=== PATIENT | female | born 1995 | race Caucasian/White ===

== ENCOUNTER 2019-05-16 04:10 | Observation (INO) | payer OTHER, SELFPAY ==
[2019-05-16] VITALS (26 sets, daily range): BP systolic 108–130; BP diastolic 48–71; PULSE 69–108; RESP 18; TEMP 36.3–37.2; O2SAT 97–100; BMI 28.3
--- NOTE | ~2019-05-16 | US_ITS ---
EXAMINATION: US OB limited w BPP DATE: 05/16/2019 07:50 INDICATION: Vaginal bleeding. Second trimester. TECHNIQUE: Real-time pelvic ultrasound was performed. COMPARISON: Ultrasound 10/23/2018 FINDINGS: There is a single living fetus in vertex presentation. The placenta is fundal. heart rate is 1 65 beats per minute (bpm). The amniotic fluid index is 3.3 cm, which is low (5th percentile is 9.7 cm ). Biophysical profile performed by the technologist: breathing (30 sec sustained breathing in 30 minutes): 2 out of 2 movement (3 gross body movements in 30 minutes): 2 out of 2 tone (one episode of tbekgpg-pwhqbggcs-ygiijkp limb movement): 2 out of 2 Amniotic fluid pocket (2 cm): 0 out of 2 Total score: 6 out of 8 IMPRESSION: 1. Single living fetus in vertex presentation. 2. Biophysical profile 6 out of 8. 3. Oligohydramnios. Reviewed, dictated and finalized at location A.
--- NOTE | 2019-05-16 04:10 | OBADM ---
This patient, Miguel Quinn, admitted to the OB room OB Post 117 for observation. Patient/family oriented to hospital policies and general routines including ID bracelet, bed and alarms, visiting hours, pain management, procedures, bathroom and other care routines, personal items, smoking policy, room service/diet, and visiting hours. Patient/Family are encouraged to report perceived risks to care and to ask questions if they do not understand what they are told or what they should do.
--- NOTE | 2019-05-16 04:35 | PC.NURSE ---
Updated Dr. Kessler on patient arrival to OB unit with complaint of vaginal bleeding when using the restroom. Patient states she is not actively bleeding and states she had a drop of blood last time she wiped. Patient reports hx of low lying placenta in current and hx of section. VSS. No contractions noted. Active movement audible, visible and felt via palpation. FHT reactive. Orders for SVE and ultrasound in AM given.
--- NOTE | 2019-05-16 04:44 | PC.NURSE ---
Vaginal check performed, vaginal bleeding noted on glove. Cervix was not checked.
--- NOTE | 2019-05-16 04:46 | PC.NURSE ---
Notifed Dr. Kesslre of vaginal bleeding during vaginal check. No new orders at present time, continue to monitor.
--- NOTE | 2019-05-16 10:03 | WPDOBADMIT ---
Obstetrics - Admit Note Admission Note: record reviewed. Additions to the history and/or subsequent changes in the physical findings follow. 24 y/o at 25 weeks here after a gush of bloody fluid at 0330 today. [facility] here is blood-tinged, but positive. No contractions. No fever. No pain. Good movement. Placenta appeared low-lying at last ultrasound exam at 22 weeks. AVSS NST 160 good variability TOCO: no contractions ABD soft, nontender, gravid. EXT nontender Cervix: not digitally examined. US: IUP in vertex presentation with fundal placenta. RASHAAD 3.3cm. A: IUP at 25 weeks with SROM. P: Spoke at length with patient and reviewed risks associated with . I offered transfer to [facility]. She understands and agrees. I spoke with Dr. Gimenez at [facility], and she has accepted the transfer.
[2019-05-16] MEDS: AMPICILLIN 2 GM/NS 100 ML 2 GM/100 ML BAG IVPB (10:47)
[2019-05-16] MEDS: LACTATED RINGERS 1,000 ML 75 ML IV CONT (10:47)
[2019-05-16] MEDS: BETAMETHASONE SOD PHOS/ACETATE 30 MG/5 ML VIAL 12 MG IM (10:58)
[2019-05-16] MEDS: MAGNESIUM SULF 6 GM/WATER150ML 6 GM/150 ML BAG IVPB (11:04)
[2019-05-16] MEDS: AZITHROMYCIN 250 MG TABLET 1000 MG PO (11:05)
[2019-05-16] MEDS: MAGNESIUM SULF 20GM/WATER500ML 500 ML 50 MG IV CONT (11:39)
== END 2019-05-16 12:01 | disposition short-term general hospital (02) ==
LOC: ANHOBPP 04:51 → ANHLDR 20:02 → ANHOBPP 05-17 12:36
PROVIDERS: Admitting Provider Obstetrics & Gynecology; Visit Provider Obstetrics & Gynecology
DX: O42.912 Preterm premature rupture of membranes, unspecified as to length of time between rupture and onset of labor, second trimester (principal); Z3A.25 25 weeks gestation of pregnancy
CPT/HCPCS: 76815; 76819; 96365; 96372; 96375; A9270; G0378; G0379; J0290; J0702; J3475; J7120

== ENCOUNTER 2020-05-01 09:32 | Observation (INO) | payer OTHER, SELFPAY ==
[2020-05-01] VITALS (31 sets, daily range): BP systolic 122–123; BP diastolic 56–67; PULSE 79–121; O2SAT 100; BMI 33.3
--- NOTE | ~2020-05-01 | US_ITS ---
EXAMINATION: US OB follow up, US OB f/u add gest EXAM DATE: 05/01/2020 10:38 INDICATION: Twins - size and position at bedside please leaking fluid, contractions, twins 3rd trim finesse. TECHNIQUE: Pelvic twin obstetrical transabdominal sonogram was performed by a technologist. There a re multiple grayscale and Doppler images available for interpretation. Comparison is made to prior ex amination from 04/06/2020. FINDINGS: There is twin intrauterine gestation, again with Baby A in lower vertex position on materna l left side with posterior placenta and heart rate 128 bpm. Baby B vertex presentation on maternal l eft side with anteriorly located placenta and heart rate 137 bpm. No evidence of retroplacental hemor rhage, but the posteriorly located placenta was poorly visualized. Amniotic fluid index of 19.0 cm, n ormal. BABY A BIOMETRIC DATA: Biparietal diameter (BPD): 9.1 cm ----------------> 37 weeks 1 day. Head circumference (HC): 32.8 cm ----------------> 37 weeks 1 day. Abdominal circumference (AC): 31.9 cm ----------> 35 weeks 5 days. Femur length (FL): 6.9 cm --------------------------> 35 weeks 2 days. These measurements are concordant. HC/AC ratio is 1.03 (The 5th -- 95th percentile range is 0.92-1.07. Estimated weight is 2809 g +/- 421 g. This is the 64th percentile when the currently reported clinical gestation age 35 weeks 3 days, clinical estimated date of delivery ([facility]VIN-OPE) 06/02/2020 is us ed. estimated gestational age based on measurements from this exam is 36 weeks 2 days, with an estimated date of delivery ([facility]VIN-AUA) 05/27. On prior ultrasound last month this baby was 65th percenti le. BABY B BIOMETRIC DATA: Biparietal diameter (BPD): 8.4 cm ----------------> 33 weeks 6 days. Head circumference (HC): 30.4 cm ----------------> 33 weeks 6 days. Abdominal circumference (AC): 29.6 cm ----------> 33 weeks 4 days. Femur length (FL): 7.0 cm --------------------------> 35 weeks 4 days. These measurements are concordant. HC/AC ratio is 1.03 (The 5th -- 95th percentile range is 0.94-1.11. Estimated weight is 2388 g +/- 358 g. This is the 19th percentile when the currently reported clinical gestation age 35 weeks 3 days, clinical estimated date of delivery ([facility]VIN-OPE) 06/02 is used. F etal estimated gestational age based on measurements from this exam is 34 weeks 2 days, with an estim ated date of delivery (NEVIN-AUA) 06/10. On prior ultrasound last month this baby was 28th percentile. IMPRESSION: 1. Live twin gestations both in vertex presentation unchanged, normal heart rates. 2. Baby A 64th percentile and baby B 19th percentile. Biometric data above. 3. Normal amniotic fluid index 19 cm. Reviewed, dictated and finalized at location A. IMPRESSION: 1. Live twin gestations both in vertex presentation unchanged, normal heart ra cary. 2. Baby A 64th percentile and baby B 19th percentile. Biometric data above. 3. Normal amniotic fluid index 19 cm.
[2020-05-01] MEDS: TERBUTALINE SULFATE 1 MG/ML VIAL 0.25 MG SUB-Q ×2 (09:24→11:02)
--- NOTE | 2020-05-01 09:56 | PM.OBTRLD ---
OB - Triage/Final Diagnosis Visit Information Reason for evaluation: threatened labor and other (twins) Comments/Additional reasons for admission: I have assessed the risk for this patient, Miguel Quinn, and determined that she would benefit from observation care. Evaluation Vital signs: Vital Signs - 24 hr 05/01/20 09:29 05/01/20 09:34 05/01/20 09:39 Pulse Oximetry 100 100 100 05/01/20 09:44 05/01/20 09:49 05/01/20 09:54 Pulse Oximetry 100 100 100
[2020-05-01] MEDS: LACTATED RINGERS 1,000 ML 125 ML IV CONT (10:09)
[2020-05-01] MEDS: BETAMETHASONE SOD PHOS/ACETATE 30 MG/5 ML VIAL 12 MG IM (10:10)
--- NOTE | 2020-05-01 10:17 | OBADM ---
This patient, Miguel Quinn, admitted to the OB room Labor/Delivery/Recovery 105 for observation. Patient/family oriented to hospital policies and general routines including ID bracelet, bed and alarms, visiting hours, pain management, procedures, bathroom and other care routines, personal items, smoking policy, room service/diet, call light, and visiting hours. Patient/Family are encouraged to report perceived risks to care and to ask questions if they do not understand what they are told or what they should do.
== END 2020-05-01 12:30 | disposition home or self-care (01) ==
PROVIDERS: Admitting Provider Obstetrics & Gynecology; Visit Provider Obstetrics & Gynecology
DX: O47.03 False labor before 37 completed weeks of gestation, third trimester (principal); O30.003 Twin pregnancy, unspecified number of placenta and unspecified number of amniotic sacs, third trimester; Z3A.35 35 weeks gestation of pregnancy
CPT/HCPCS: 76816; 84112; 96372; G0378; G0379; J0702; J3105; J7120

== ENCOUNTER 2020-05-02 10:06 | Observation (INO) | payer OTHER, SELFPAY ==
[2020-05-02] VITALS (8 sets, daily range): BP systolic 114–128; BP diastolic 55–73; PULSE 73–93; BMI 33.3
[2020-05-02] MEDS: BETAMETHASONE SOD PHOS/ACETATE 30 MG/5 ML VIAL 12 MG IM (10:39)
[2020-05-02 13:17] LABS: Add Urine Microscopic? NO; Appearance Urine Clear (Clear); Bilirubin Urine Negative (Negative); Blood Urine Negative (Negative); Color Urine Yellow (Yellow); Glucose Urine UA Negative (Negative); Ketones Urine Negative (Negative); Leukocyte Esterase Ur Negative LEU/UL (Negative); Nitrate Urine Negative (Negative); Protein Urine Negative (Negative); Specific Grav Ur 1.013 (1.001-1.035); Urobilinogen Urine Negative mg/dL (<2.0)
[2020-05-02] MEDS: ACETAMINOPHEN 500 MG TABLET 1000 MG PO (13:54)
[2020-05-02] MEDS: NIFEdipine 10 MG CAPSULE 20 MG PO (13:55)
--- NOTE | 2020-05-03 07:26 | PM.OBTRLD ---
OB - Triage/Final Diagnosis Visit Information Date of evaluation: 05/02/20 Reason for evaluation: threatened labor Comments/Additional reasons for admission: I have assessed the risk for this patient, Miguel Quinn, and determined that she would benefit from observation care. Evaluation Laboratory results: Laboratory Tests 05/02/20 12:44 Urine Color Yellow Urine Appearance Clear Urine pH 6.0 Ur Specific [place] 1.013 Urine Protein Negative Urine Glucose (UA) Negative Urine Ketones Negative Ur Blood (Man) Negative Urine Nitrate Negative Urine Bilirubin Negative Urine Urobilinogen Negative Leukocyte Esterase Rfl Negative Vital signs: Vital Signs - 24 hr 05/02/20 10:29 05/02/20 10:30 05/02/20 11:01 Pulse Rate 93 86 80 Blood Pressure 128/73 119/66 120/68 05/02/20 11:30 05/02/20 12:00 05/02/20 12:30 Pulse Rate 76 73 79 Blood Pressure 114/61 115/61 119/59 L 05/02/20 13:00 05/02/20 13:30 Pulse Rate 81 78 Blood Pressure 118/55 L 121/60
== END 2020-05-02 14:00 | disposition home or self-care (01) ==
PROVIDERS: Admitting Provider Student in an Organized Health Care Education/Training Program; Visit Provider Student in an Organized Health Care Education/Training Program
DX: O47.03 False labor before 37 completed weeks of gestation, third trimester (principal); Z3A.35 35 weeks gestation of pregnancy
CPT/HCPCS: 81003; 96372; A9270; G0378; G0379; J0702

== ENCOUNTER 2020-05-04 09:53 | Observation (INO) | payer OTHER, SELFPAY ==
[2020-05-04] VITALS (7 sets, daily range): BP systolic 110–131; BP diastolic 59–74; PULSE 75–95; TEMP 37.4; BMI 33.3
--- NOTE | 2020-05-04 11:47 | PM.OBTRLD ---
OB - Triage/Final Diagnosis Visit Information Date of evaluation: 05/04/20 Reason for evaluation: threatened labor and other (twins) Comments/Additional reasons for admission: I have assessed the risk for this patient, Miguel Quinn, and determined that she would benefit from observation care. Evaluation Vital signs: Vital Signs - 24 hr 05/04/20 10:18 05/04/20 10:30 05/04/20 10:41 Temperature 99.4 F Pulse Rate 84 81 Blood Pressure 125/70 125/64 05/04/20 10:45 05/04/20 11:00 05/04/20 11:15 Temperature Pulse Rate 78 75 95 Blood Pressure 119/59 L 110/71 125/74 05/04/20 11:30 Temperature Pulse Rate 87 Blood Pressure 131/61
== END 2020-05-04 12:07 | disposition home or self-care (01) ==
PROVIDERS: Admitting Provider Obstetrics & Gynecology; Visit Provider Obstetrics & Gynecology
DX: O47.03 False labor before 37 completed weeks of gestation, third trimester (principal); O30.003 Twin pregnancy, unspecified number of placenta and unspecified number of amniotic sacs, third trimester; Z3A.35 35 weeks gestation of pregnancy
CPT/HCPCS: G0378; G0379

== ENCOUNTER 2020-05-09 19:42 | Observation (INO) | payer OTHER, SELFPAY ==
[2020-05-09 21:45] VITALS: TEMP 36.6
[2020-05-09] MEDS: AMPICILLIN 2 GM/NS 100 ML 2 GM/100 ML BAG IVPB (22:12)
[2020-05-09 22:18] VITALS: BMI 35.9
[2020-05-09] MEDS: LACTATED RINGERS 1,000 ML 125 ML IV CONT (23:44)
[2020-05-09 23:46] VITALS: BP 137/73; PULSE 74
--- NOTE | 2020-05-10 04:12 | WPDOBADMIT ---
Obstetrics - Admit Note Admission Note: record reviewed. Additions to the history and/or subsequent changes in the physical findings follow. 25 y/o at 36 5/7 weeks with di/di twins, prior cesaraean, prior at 28 weeks, here with contractions. Good movement. No bleeding or leakage of fluid. Have watched here for several hours. AVSS NST reactive x 2 TOCO: contractions every 7-8 min ABD soft, nontender, gravid, vertex EXT nontender Cervix 3-4/50/-2, unchanged. Bedside ultrasound vtx / vtx. A: IUP at 36 5/7 weeks with twins, not in active labor. P: Home with labor precautions. F/u next week..
== END 2020-05-10 04:25 | disposition home or self-care (01) ==
PROVIDERS: Admitting Provider Obstetrics & Gynecology; Visit Provider Obstetrics & Gynecology
DX: O60.03 Preterm labor without delivery, third trimester (principal); O30.043 Twin pregnancy, dichorionic/diamniotic, third trimester; Z3A.36 36 weeks gestation of pregnancy
CPT/HCPCS: 96374; G0378; G0379; J0290; J7120

== ENCOUNTER 2020-05-14 12:27 | Outpatient (RCR) | payer OTHER, SELFPAY ==
[2020-04-06 14:20] VITALS: BP 119/63; PULSE 81
[2020-04-21 10:07] VITALS: BP 126/72; PULSE 76
[2020-04-28 14:04] VITALS: BP 132/63; PULSE 78
[2020-05-07 12:00] VITALS: BP 124/61; PULSE 75
--- NOTE | ~2020-05-14 | US_ITS ---
EXAMINATION: US OB f/u add gest EXAM DATE: 04/06/2020 15:50 INDICATION: 3rd trimester. TECHNIQUE: Pelvic twin obstetrical transabdominal sonogram was performed by a technologist. There a re multiple grayscale and Doppler images available for interpretation. FINDINGS: There are live twin gestations with baby A in lower vertex position on maternal left side a nd baby B in higher vertex position on maternal right side. Sac separation noted. BABY A: Has heart rate 139 bpm and posteriorly located placenta. Biparietal diameter (BPD): 8.5cm --------------> 34 weeks 0 days. Head circumference (HC): 30.5 cm ---------------> 33 weeks 6 days. Abdominal circumference (AC): 28.5 cm ---------> 32 weeks 4 days. Femur length (FL): 6.2 cm ------------------------> 32 weeks 0 days. These measurements are concordant. HC/AC ratio is 1.07 (The 5th -- 95th percentile range is 0.96-1.11. Estimated weight is 2019 g +/- 303 g. This is the 65th percentile when the currently reported clinical gestation age 31 weeks 6 days, clinical estimated date of delivery ([facility]) 06/02/2020 is us ed. estimated gestational age based on measurements from this exam is 33 weeks 1 day, with an e stimated date of delivery (NEVIN-AUA) 05/24. BABY B: Has a heart rate 126 beats per minutes and an anteriorly located placenta. Biparietal diameter (BPD): 7.6cm --------------> 29 weeks 6 days. Head circumference (HC): 28.0 cm ---------------> 30 weeks 6 days. Abdominal circumference (AC): 27.9 cm ---------> 32 weeks 0 days. Femur length (FL): 6.0 cm ------------------------> 31 weeks 2 days. These measurements are concordant. HC/AC ratio is 1.01 (The 5th -- 95th percentile range is 0.96-1.17. Estimated weight is 1779 g +/- 267 g. This is the 28th percentile when the currently reported clinical gestation age 31 weeks 6 days, clinical estimated date of delivery ([facility]-OPE) 06/02/2020 is us ed. estimated gestational age based on measurements from this exam is 31 weeks 0 days, with an estimated date of delivery ([facility]VIN-AUA) 06/08. IMPRESSION: 1. Twin gestations both vertex presentation. 2. Using gestation age of 31 weeks 6 days, weight of baby A is 2019 g, 65th percentile and baby B is 1779 g, 28th percentile. Reviewed, dictated and finalized at location B. [employer]
--- NOTE | ~2020-05-14 | US_ITS ---
Corrected Report See Bolded Text Order # Associated 06/10/2020 [facility] EXAMINATION: US OB f/u add gest EXAM DATE: 04/06/2020 15:57 INDICATION: Twins- Estimated weight and presentation 3rd trimester. TECHNIQUE: Pelvic obstetrical transabdominal sonogram was performed by a technologist. There are multiple grayscale and Doppler images available for interpretation. FINDINGS: There are live twin gestations with baby A in lower vertex position on maternal left side and baby B in higher vertex position on maternal right side. Sac separation noted. BABY A: Has heart rate 139 bpm and posteriorly located placenta. Biparietal diameter (BPD): 8.5cm --------------> 34 weeks 0 days. Head circumference (HC): 30.5 cm ---------------> 33 weeks 6 days. Abdominal circumference (AC): 28.5 cm ---------> 32 weeks 4 days. Femur length (FL): 6.2 cm ------------------------> 32 weeks 0 days. These measurements are concordant. HC/AC ratio is 1.07 (The 5th -- 95th percentile range is 0.96-1.11. Estimated weight is 2019 g +/- 303 g. This is the 65th percentile when the currently reported clinical gestation age 31 weeks 6 days, clinical estimated date of delivery ([facility]-OPE) 06/02/2020 is used. estimated gestational age based on measurements from this exam is 33 weeks 1 day, with an estimated date of delivery ([facility]VIN-AUA) 05/24. BABY B: Has a heart rate 126 beats per minutes and an anteriorly located placenta. Biparietal diameter (BPD): 7.6cm --------------> 29 weeks 6 days. Head circumference (HC): 28.0 cm ---------------> 30 weeks 6 days. Abdominal circumference (AC): 27.9 cm ---------> 32 weeks 0 days. Femur length (FL): 6.0 cm ------------------------> 31 weeks 2 days. These measurements are concordant. HC/AC ratio is 1.01 (The 5th -- 95th percentile range is 0.96-1.17. Estimated weight is 1779 g +/- 267 g. This is the 28th percentile when the currently reported clinical gestation age 31 weeks 6 days, clinical estimated date of delivery ([facility]-OPE) 06/02/2020 is used. estimated gestational age based on measurements from this exam is 31 weeks 0 days, with an estimated date of delivery ([facility]VIN-AUA) 06/08. IMPRESSION: 1. Twin gestations both vertex presentation. 2. Using gestation age of 31 weeks 6 days, weight of baby A is 2019 g, 65th percentile and baby B is 1779 g, 28th percentile. Reviewed, dictated and finalized at location B. [employer] IMPRESSION: 1. Twin gestations both vertex presentation. 2. Using gestation age of 31 weeks 6 days, weight of baby A is 2019 g, 65th pe rcentile and baby B is 1779 g, 28th percentile.
[2020-05-14 12:52] VITALS: BP 124/69; PULSE 76
== END 2020-05-29 08:02 | disposition home or self-care (01) ==
LOC: ANHOBOP 12:27
PROVIDERS: Visit Provider Obstetrics & Gynecology
DX: O30.003 Twin pregnancy, unspecified number of placenta and unspecified number of amniotic sacs, third trimester (principal); Z3A.31 31 weeks gestation of pregnancy; Z3A.34 34 weeks gestation of pregnancy; Z3A.35 35 weeks gestation of pregnancy; Z3A.36 36 weeks gestation of pregnancy; Z3A.37 37 weeks gestation of pregnancy
CPT/HCPCS: 59025; 76816

== ENCOUNTER 2020-05-16 18:50 | Inpatient (IN) | payer OTHER, SELFPAY ==
[2020-05-16 19:15] VITALS: BMI 36.7
--- NOTE | 2020-05-16 21:38 | PC.NURSE ---
Dr. Ketty Rey contacted. Advised that pt is having conrtractions with minimal to no cervical change after 2 hours. Pt rates pain as 8. Pt is not breathing with contractions and palpate mild. Will give IV hydration
[2020-05-16] MEDS: LACTATED RINGERS 1,000 ML 999 ML IV CONT (22:28)
[2020-05-16] MEDS: fentaNYL CITRATE INJ (*CRX) 100 MCG/2 ML VIAL 50 MCG IV PUSH ×2 (22:29→23:37)
[2020-05-16 22:31] VITALS: BP 131/83; PULSE 71
--- NOTE | 2020-05-16 23:00 | PC.NURSE ---
Dr. Ketty Keating phoned in for status/ Will continue to observe pt overnight for cervical change. Pt advised of same. Pt continues having contractions every 1-2 min. States improvement of pain since Fentanyl. Pt resting quietly.
--- NOTE | 2020-05-16 23:17 | OBADM ---
This patient, Miugel Quinn, admitted to the OB room Labor/Delivery/Recovery 101 for observation at 1850. Patient/family oriented to hospital policies and general routines including ID bracelet, bed and alarms, visiting hours, pain management, procedures, bathroom and other care routines, personal items, smoking policy, room service/diet, and visiting hours. Patient/Family are encouraged to report perceived risks to care and to ask questions if they do not understand what they are told or what they should do.
[2020-05-16] MEDS: LACTATED RINGERS 1,000 ML 125 ML IV CONT (23:37)
[2020-05-16 23:47] VITALS: BP 122/82; PULSE 69
[2020-05-17] VITALS (86 sets, daily range): BP systolic 48–171; BP diastolic 17–95; PULSE 63–112; RESP 14–18; TEMP 36–36.9; O2SAT 94–100; BMI 36.7
[2020-05-17] MEDS: fentaNYL CITRATE INJ (*CRX) 100 MCG/2 ML VIAL 50 MCG IV PUSH ×2 (02:04→03:45)
--- NOTE | 2020-05-17 03:13 | LDADM ---
This patient, Miguel Quinn, was admitted to Labor/Delivery/Recovery 101 on 05/17/20 at 03:13. Plans for labor, pain management and were discussed with patient. Patient/family oriented to hospital policies and general routines including ID bracelet, bed and alarms, visiting hours, pain management, procedures, bathroom and other care routines, personal items, smoking policy, room service/diet and guest tray routines, security routines, and visiting hours. Patient/Family are encouraged to report perceived risks to care and to ask questions if they do not understand what they are told or what they should do. See OBIX for further documentation.
[2020-05-17 03:36] LABS: Basophils Absolute Auto 0.1 K/mm3 (0.0-0.1); Basophils Percent Auto 0.3 % (0.2-1.2); Eosinophils Absolute Auto 0.1 K/mm3 (0-0.3); Eosinophils Percent Auto 0.7 % (0-4.4); Hematocrit 35.6 % (37.0-47.0); Hemoglobin 11.4 g/dL (12.0-15.0); Immature Granulocyte Absolute 0.15 K/mm3 (0.00-0.031); Immature Granulocyte Percent A 0.9 % (0-0.5); Lymphocytes Absolute Auto 1.83 K/mm3 (0.9-3.2); Lymphocytes Percent Auto 11.1 % (18.3-44.2); Mean Corpuscular Hemoglobin 26.4 pg (26-34); Mean Corpuscular Volume 82.4 fl (80-100); Mean Platelet Volume 11.2 fl (7.4-10.4); Neutrophils Absolute Auto 13.3 K/mm3 (1.3-6.7); Platelet Count Result 214 k/mm3 (150-375); Red Blood Count 4.32 M/mm3 (4.2-5.4); Red Cell Distribution Width 16.1 % (11.5-14.5); White Blood Count 16.5 K/mm3 (4.5-10.0)
[2020-05-17] MEDS: AMPICILLIN 2 GM/NS 100 ML 2 GM/100 ML BAG IVPB (03:45)
--- NOTE | 2020-05-17 03:54 | P.PNAN_ITS ---
Anes - Eval Pre Procedure Procedure: Labor epidural Date/Time: 05/17/20 03:54 Surgeon: Ketty Keating Preop Diagnosis: Abd pain with contractions Pre Op Diagnosis: Contractions Patient Data Age: 25 Gender: F Height: 5 ft 3 in Weight: 94 kg Last Vital Signs Pulse 66 05/17/20 02:00 BP 127/68 05/17/20 02:00 Allergies Allergy/AdvReac Type Severity Reaction Status Date / Time No Known Allergies Allergy Verified 05/01/20 10:14 Home Medications Medication Instructions Recorded Confirmed Type PNV cmb#95-ferrous fumarate-FA 1 tablet PO DAILY 05/02/20 05/16/20 History [] ferrous sulfate 325 mg PO TID 05/02/20 05/16/20 History progesterone micronized 200 mg PO HS 05/02/20 05/16/20 History Laboratory Tests 05/17/20 05/17/20 03:25 03:25 WBC 16.5 K/mm3 H K/mm3 (4.5-10.0) RBC 4.32 M/mm3 M/mm3 (4.2-5.4) Hgb 11.4 g/dL L g/dL (12.0-15.0) Hct 35.6 % L % (37.0-47.0) MCV 82.4 fl fl (80-100) MCH 26.4 pg pg (26-34) MCHC 32.0 g/dl g/dl (32-36) RDW 16.1 % H % (11.5-14.5) Plt Count 214 k/mm3 k/mm3 (150-375) MPV 11.2 fl H fl (7.4-10.4) Immature Gran % (Auto) 0.9 % H % (0-0.5) Neut % (Auto) 81.0 % H % (45.5-73.1) Lymph % (Auto) 11.1 % L % (18.3-44.2) [place] % (Auto) 6.0 % % (2.6-8.5) Eos % (Auto) 0.7 % % (0-4.4) Baso % (Auto) 0.3 % % (0.2-1.2) Lymph # (Auto) 1.83 K/mm3 K/mm3 (0.9-3.2) [place] # (Auto) 1.0 K/mm3 H K/mm3 (0.1-0.6) Eos # (Auto) 0.1 K/mm3 K/mm3 (0-0.3) Baso # (Auto) 0.1 K/mm3 K/mm3 (0.0-0.1) Abs Immat Gran (auto) 0.15 K/mm3 H K/mm3 (0.00-0.031) Absolute Neuts (auto) 13.3 K/mm3 H K/mm3 (1.3-6.7) Absolute Nucleated RBC 0.0 K/mm3 K/mm3 (0.0-0.012) Nucleated RBC % 0.0 % % (0.0-0.2) RPR Pending Patient hx anesthesia problems: none Family hx anesthesia problems: none PMFSH Past Medical History Medical History Obesity and not yet delivered Surgical History Surgical History Previous section Family History Family History Other Adopted Social History Social History Substance use: never Gender identity (if verbalized by the patient): Female Spiritual care concerns: No Exam Day of Procedure 05/17/20 03:54 Patient weight: obese Airway: Mallampati scale class II Neurological: alert and oriented
[2020-05-17] MEDS: METHYLERGONOVINE MALEATE 0.2 MG/ML VIAL IM (06:06)
--- NOTE | 2020-05-17 06:17 | PM.OBPRVD ---
OB - Delivery Note Procedure Delivery date: 05/17/20 Procedure: twins Delivery monitor: external FHT Route of delivery: Episiotomy description: None Laceration Description: None Specimen: No Quantitative Blood Loss (ml): 450 Anesthesia type: Epidural Disposition: floor
--- NOTE | 2020-05-17 06:20 | PM.OBPRVD ---
OB - Delivery Note Procedure Delivery date: 05/17/20 Intrapartal events: None Delivery monitor: external FHT Route of delivery: Laceration Description: None Specimen: No Quantitative Blood Loss (ml): 450 Anesthesia type: Epidural Disposition: floor [place] Baby Date of : 05/17/20 Weeks of gestation at delivery: 37 Infant gender: Female presentation: vertex position: Right Occiput Anterior Placenta delivery description: Spontaneous cord vessel description: 3 Vessels
--- NOTE | 2020-05-17 06:22 | PM.OBPRVD ---
OB - Delivery Note Procedure Delivery date: 05/17/20 Intrapartal events: None Induction method: none Delivery monitor: external FHT Route of delivery: Quantitative Blood Loss (ml): 450 Anesthesia type: Epidural Disposition: floor [place] Baby Date of : 05/17/20 Weeks of gestation at delivery: 37 gender: Female Weight (pounds): 5 Weight (ounces): 5 presentation: vertex position: Right Occiput Anterior Placenta delivery description: Spontaneous cord vessel description: 3 Vessels score one minute: 8 score five minutes: 8 Twins 2: Date of : 05/17/20 Weeks of gestation at delivery: 37 gender: Female Weight (pounds): 6 Weight (ounces): 6 presentation: vertex position: Right Occiput Anterior Placental delivery description: Spontaneous cord vessel description: 3 Vessels score one minute: 9 score five minutes: 9
--- NOTE | 2020-05-17 06:30 | PM.IMHP ---
H&P: HPI History of Present Illness Date/Time: 05/17/20 06:30 The patient is admitted at 37 weeks with twins in active labor. She has had a previous section previous vaginal delivery. Risks and benefits of were reviewed throughout the . She is positive for group B strep and will be treated as such Chief Complaint: labor twins Review of Systems Review of Systems: All systems reviewed & are unremarkable except as noted in HPI and below PMFSH Past Medical History Medical History Obesity and not yet delivered Surgical History Surgical History Previous section Family History Family History Other Adopted Social History Social History Smoking status: Never smoker Substance use: never Gender identity (if verbalized by the patient): Female Spiritual care concerns: No Meds Home Medications and Allergies Home Medications Medication Instructions Recorded Confirmed Type PNV cmb#95-ferrous fumarate-FA 1 tablet PO DAILY 05/02/20 05/16/20 History [] ferrous sulfate 325 mg PO TID 05/02/20 05/16/20 History progesterone micronized 200 mg PO HS 05/02/20 05/16/20 History Allergies Allergy/AdvReac Type Severity Reaction Status Date / Time No Known Allergies Allergy Verified 05/01/20 10:14 Vital Signs Vital Signs - 24 hr 05/16/20 22:31 05/16/20 23:47 05/17/20 00:00 Pulse Rate 71 69 66 Blood Pressure 131/83 122/82 129/75 Pulse Oximetry 05/17/20 01:00 05/17/20 02:00 05/17/20 03:56 Pulse Rate 75 66 Blood Pressure 127/81 127/68 Pulse Oximetry 99 05/17/20 03:57 05/17/20 04:02 05/17/20 04:07 Pulse Rate 84 Blood Pressure 150/89 H Pulse Oximetry 100 99 100 05/17/20 04:08 05/17/20 04:10 05/17/20 04:12 Pulse Rate 74 79 Blood Pressure 146/93 H 149/82 H Pulse Oximetry 99 05/17/20 04:13 05/17/20 04:14 05/17/20 04:17 Pulse Rate 112 H 75 Blood Pressure 48/17 L 171/75 H Pulse Oximetry 100 05/17/20 04:18 05/17/20 04:21 05/17/20 04:23 Pulse Rate 85 74 Blood Pressure 146/86 H 153/84 H Pulse Oximetry 98 100 05/17/20 04:24 05/17/20 04:27 05/17/20 04:28 Pulse Rate 84 72 Blood Pressure 142/86 H 142/83 H Pulse Oximetry 98 05/17/20 04:30 05/17/20 04:33 05/17/20 04:36 Pulse Rate 68 78 69 Blood Pressure 150/76 H 150/81 H 150/75 H Pulse Oximetry 97 05/17/20 04:38 05/17/20 04:39 05/17/20 04:42 Pulse Rate 68 84 Blood Pressure 140/74 150/87 H Pulse Oximetry 100 05/17/20 04:43 05/17/20 04:45 05/17/20 04:48 Pulse Rate 85 69 Blood Pressure 148/60 H 148/78 H Pulse Oximetry 96 99 05/17/20 04:51 05/17/20 04:53 05/17/20 04:54 Pulse Rate 71 79 Blood Pressure 142/67 H 137/72 Pulse Oximetry 100 05/17/20 04:57 05/17/20 04:58 05/17/20 05:00 Pulse Rate 69 69 Blood Pressure 134/78 143/62 H Pulse Oximetry 98 05/17/20 05:03 05/17/20 05:06 05/17/20 05:08 Pulse Rate 78 72 Blood Pressure 133/77 141/62 H Pulse Oximetry 100 97 05/17/20 05:09 05/17/20 05:55 05/17/20 05:57 Pulse Rate 70 Blood Pressure 147/72 H Pulse Oximetry 100 100 05/17/20 05:59 05/17/20 06:01 05/17/20 06:03 Pulse Rate 103 H 87 85 Blood Pressure 123/76 115/59 L 117/71 Pulse Oximetry 05/17/20 06:12 Pulse Rate 80 Blood Pressure 92/68 L Pulse Oximetry Exam Const: General: no acute distress Eyes: General: appearance normal, both eyes and all related structures Neck: Neck: supple and no JVD Thyroid: thyroid normal Resp: Effort & Inspection: normal respiratory effort Auscultation: clear to auscultation bilaterally Cardio: Rate: regular rate Rhythm: regular rhythm GI: Inspection: non-distended GI Palp: Yes Soft to palpation, No Tenderness
[2020-05-17] MEDS: OXYTOCIN 30 UNITS/NS 500 ML 30 UNITS/500 ML BAG 125 UNITS IV CONT (06:37)
--- NOTE | 2020-05-17 07:11 | PC.NURSE ---
SEE OBIX DOCUMENTATION
[2020-05-17] MEDS: IBUPROFEN 600 MG TABLET PO ×3 (09:01→23:18)
[2020-05-17] MEDS: ACETAMINOPHEN 325 MG TABLET 650 MG PO ×2 (09:21→20:38)
--- NOTE | 2020-05-17 09:30 | PC.NURSE ---
Patient transferred to post room #290 per wheelchair from labor and delivery. Support person present. Oriented to unit, room, information board, rooming in, admission packet and security measures. Patient verbalizes understanding.
[2020-05-17] MEDS: DOCUSATE SODIUM 100 MG CAPSULE PO (23:26)
[2020-05-18 04:25] VITALS: BP 131/75; PULSE 78; RESP 18; TEMP 36.7
[2020-05-18 04:42] LABS: Hematocrit 26.7 % (37.0-47.0); Hemoglobin 8.6 g/dL (12.0-15.0)
--- NOTE | 2020-05-18 07:00 | PC.NURSE ---
PT introductions made and plan of care discussed per post , pain management, breast feeding, pumping, bottle feeding, daily care activities. PT verbalized understanding understanding of such care.
--- NOTE | 2020-05-18 07:09 | P.DS_ITS ---
DS: Admitting Diagnosis Admitting Diagnosis Admitting Diagnosis: twin preg term DS: Summary Hospital Course Hospital Course: The patient was admitted in active labor with a twin . She underwent spontaneous vaginal delivery of both babies without complication. Hospital course was unremarkable. She remained afebrile. She was up, voiding without difficulty, ambulating, breast-feeding, and generally w ithout complaints Time Spent with Patient Time attestation: Total time spent providing and/or coordinating discharge services: Exam Const: General: no acute distress Eyes: General: appearance normal, both eyes and all related structures Neck: Neck: supple and no JVD Thyroid: thyroid normal Resp: Effort & Inspection: normal respiratory effort Auscultation: clear to auscultation bilaterally Cardio: Rate: regular rate Rhythm: regular rhythm GI: Inspection: non-distended GI Palp: Yes Soft to palpation, No Tenderness to palpation present (GI) and No Guarding due to palpation present (GI) Auscultation: normal bowel sounds : General: Yes bladder normal to palpation External Female Exam: normal external appearance Speculum Exam - Vagina: normal vaginal discharge and No vaginal bleeding Speculum Exam - Cervix: nontender Bimanual exam- vagina & uterus: bladder normal to palpation and No Cervical tenderness present OB/external & speculum: No vaginal bleeding Skin: General skin exam: no rashes or lesions noted Extrem: General: normal to inspection and no edema Psych: Mental Status: mental status grossly normal Affect: normal affect DS: Data Data Completed and Pending Pending studies at discharge: Pending at discharge 05/17/20 06:01 Surgical [PTH] Routine Labs on day of discharge: Labs from last 24 hours 05/18/20 04:30 Hgb 8.6 L Hct 26.7 L Discharge Plan Discharge Attending physician on discharge: Russel Richards Consulting providers: Margot Ro Discharging Clinician: Russel Richards Patient Disposition: Home, Self-Care Activity: may shower, no straining and pelvic rest Diet: heart healthy Wound Care Instructions: follow printed instructions Patient Instructions: Antibiotic Form Stand Alone Forms: General Discharge Information Follow-up/Referrals: Russel Richards MD [Physician] - Discharge Medications: Continued ferrous sulfate 325 mg (65 mg iron) Tablet 325 mg PO TID RF: 0 progesterone micronized 200 mg Capsule 200 mg PO HS RF: 0 PNV cmb#95-ferrous fumarate-FA [] 28 mg iron- 800 mcg Tablet 1 tablet PO DAILY RF: 0 Date of admission: 05/17/20 03:13 Primary Care Provider: PHYSICIAN,LOGGING SUPERINTENDENT Admitting Provider: Russel Richards Attending physician on admission: Russel Richards Condition: Stable
--- NOTE | 2020-05-18 07:11 | PM.OBPNVD ---
OB - PN: Subj Subjective Date/time seen: 05/18/20 07:11 Patient comments: no complaints and pain well controlled baby status: doing well and nursing well OB - PN: Obj Data Labs CBC & Chem 7: 05/18/20 04:30 Labs: Laboratory Results - last 24 hr 05/18/20 04:30 Hgb 8.6 L Hct 26.7 L OB - PN A/P Plan day: 1 Plan: routine care, discharge home and follow up 6 weeks Time Spent With Patient Time: Total time spent is greater than 50% in coordination of care (as documented) at patient's floor/unit and/or counseling patient: Time with patient: less than 15 minutes Review of Systems Review of Systems: All systems reviewed & are unremarkable except as noted in HPI and below Exam Const: General: no acute distress Eyes: General: appearance normal, both eyes and all related structures Neck: Neck: supple and no JVD Thyroid: thyroid normal Resp: Effort & Inspection: normal respiratory effort Auscultation: clear to auscultation bilaterally Cardio: Rate: regular rate Rhythm: regular rhythm GI: Inspection: non-distended GI Palp: Yes Soft to palpation, No Tenderness to palpation present (GI) and No Guarding due to palpation present (GI) Auscultation: normal bowel sounds : General: Yes bladder normal to palpation External Female Exam: normal external appearance Speculum Exam - Vagina: normal vaginal discharge and No vaginal bleeding Speculum Exam - Cervix: nontender Bimanual exam- vagina & uterus: bladder normal to palpation and No Cervical tenderness present OB/external & speculum: No vaginal bleeding Skin: General skin exam: no rashes or lesions noted Extrem: General: normal to inspection and no edema Psych: Mental Status: mental status grossly normal Affect: normal affect
[2020-05-18 07:18] LABS: Rapid Plasma Reagin Non-Reactive (NonReactive)
--- NOTE | 2020-05-18 10:00 | PC.NURSE ---
Mother called out for assist with feeding infant. Consulted with patient, mother reports infants are sleepy and is having difficulties with latching. Infant is inconsistent with eagerness and latching, some feedings infant will be easily awoken and latch other mother struggles to get infant to latch. Discussed and the 37 5/7 week infants, establishing may have its own unique set of circumstances due to their immaturity. infants may be less alert, have less stamina and may have issues with latch, suck and swallow. With the possible inability to have a vigorous suck swallow, infants may not be adequately stimulating mother and/or able to have adequate milk transfer. Pumping should be considered for additional stimulation and to offer EBM as part of supplement if needed. Mother reports last child was 28 weeks when delivered and she pumped and bottle fed for several months. Discussed limiting time infants are at breast to 10 minutes then supplementing. Discussed rotating breast each feeding with each . Mother states she has been attempting infants to breast each feeding, Mother will supplement each feeding and then pump. Mother has her own pump at bedside and is comfortable with use.
[2020-05-18] MEDS: MULTIVIT/MIN/PREN/FOL AC/IRON TABLET 1 TAB PO (10:54)
[2020-05-18] MEDS: DOCUSATE SODIUM 100 MG CAPSULE PO ×2 (10:54→17:38)
[2020-05-18] MEDS: ACETAMINOPHEN 325 MG TABLET 650 MG PO (10:54)
[2020-05-18] MEDS: IBUPROFEN 600 MG TABLET PO ×2 (10:56→18:25)
[2020-05-18 11:00] VITALS: BP 143/85; PULSE 68; RESP 18; TEMP 36.6; O2SAT 97
[2020-05-18] MEDS: POLYSACCHARIDE IRON COMPLEX 150 MG CAPSULE PO ×2 (11:00→17:38)
--- NOTE | 2020-05-18 11:30 | WPDANLDPN2 ---
Anes-Prog Note L&D Date/Time: 05/18/20 11:30 Comfortable throughout: labor and delivery Neuraxial method: epidural Epidural/Spinal procedure site: clean & non-tender Neuro status: Neuro function grossly intact. Cardiovascular status: normal Respiratory status: normal Airway patency: baseline Mental status: baseline Post-Op hydration status: normal Vital Signs: Last Vital Signs Temp 36.6 C 05/18/20 11:00 Pulse 68 05/18/20 11:00 Resp 18 05/18/20 11:00 BP 143/85 H 05/18/20 11:00 Pulse Ox 97 05/18/20 11:00 Pain score (VAS): 0 Post-procedural complaints: none Patient feedback: Patient satisfied with anesthetic care.
--- NOTE | 2020-05-18 11:40 | PC.NURSE ---
Mother called out for assist with feeding. Reviewed feeding cues, frequencies, duration of feedings, feeding elimination flow sheet, and signs of adequate intake. Demonstrated stimulation techniques to wake infant for feeding. Assisted with B to breast. Reviewed positioning/alignment in cross cradle, holding breast in U hold and guided asymmetrical latch on. Discussed the rational for each. Infant was able to latch correctly. nursed in bursts with eager steady draws and occasional swallowing noted followed with long pausing. Reviewed signs of a correct latch, effective nursing and suck swallow ratio. was able to maintain latch without discomfort to mother. Nipple care reviewed. Advised to stimulate infant while feeding to keep awake and effectively feeding for increased intake and to assist with maintaining deep latch. Demonstrated how to adjust latch more deeply while feeding. Feeding plan will be to attempt infant to breast each feeding, if does not effectively feed, mother will supplement 15mls then pump both breasts for 10-15 minutes.
--- NOTE | 2020-05-18 12:00 | PC.NURSE ---
Mother called out for assist with feeding. Reviewed feeding cues, frequencies, duration of feedings, feeding elimination flow sheet, and signs of adequate intake. Demonstrated stimulation techniques to wake infant for feeding. Assisted with A to breast. Reviewed positioning/alignment in cross cradle, holding breast in U hold and guided asymmetrical latch on. Discussed the rational for each. Infant was able to latch correctly. nursed in bursts with eager steady draws and occasional swallowing noted followed with long pausing. Reviewed signs of a correct latch, effective nursing and suck swallow ratio. was able to maintain latch without discomfort to mother. Nipple care reviewed. Advised to stimulate infant while feeding to keep awake and effectively feeding for increased intake and to assist with maintaining deep latch. Demonstrated how to adjust latch more deeply while feeding. Mother reports infant A is usually more awake and eager to feed than B , this feeding infant is more sleepy. Feeding plan will be to attempt to breast each feeding, if does not effectively feed, mother will supplement 15mls then pump both breasts for 10-15 minutes. FOB at bedside and is supplementing B and will supplement A when done. Mother will pump.
--- NOTE | 2020-05-18 15:46 | PCCCNOTE ---
Care Coordination Consult: Met with pt. and TOMAS Baxter today. Pt. and Sahil now have 4 children, 2 years, 1 years and two newborns. Pt. reports she lives at home with Sahil and does have family support. Pt. and family are current with [facility] services and will add the newborns on at discharge. Pt. has all necessary equipment and supplies for the babies including a crib, carseats, clothing, diapers, and bottles. Pt. does only have one available crib to use at discharge and will look into the resources provided if they need to obtain another. Pt. and family deny any further case management needs.
[2020-05-18 18:20] VITALS: BP 139/80; PULSE 62; RESP 18; TEMP 36.4
[2020-05-19] MEDS: ACETAMINOPHEN 325 MG TABLET 650 MG PO (05:20)
--- NOTE | 2020-05-19 07:43 | PM.OBPNVD ---
OB - PN: Subj Subjective Date/time seen: 05/19/20 07:43 Patient comments: no complaints and pain well controlled baby status: doing well and nursing well OB - PN: Obj Data Labs CBC & Chem 7: 05/18/20 04:30 OB - PN A/P Plan day: 2 Plan: routine care, discharge home and follow up 6 weeks Time Spent With Patient Time: Total time spent is greater than 50% in coordination of care (as documented) at patient's floor/unit and/or counseling patient: Time with patient: less than 15 minutes Review of Systems Review of Systems: All systems reviewed & are unremarkable except as noted in HPI and below Exam Const: General: no acute distress Eyes: General: appearance normal, both eyes and all related structures Neck: Neck: supple and no JVD Thyroid: thyroid normal Resp: Effort & Inspection: normal respiratory effort Auscultation: clear to auscultation bilaterally Cardio: Rate: regular rate Rhythm: regular rhythm GI: Inspection: non-distended GI Palp: Yes Soft to palpation, No Tenderness to palpation present (GI) and No Guarding due to palpation present (GI) Auscultation: normal bowel sounds : General: Yes bladder normal to palpation External Female Exam: normal external appearance Speculum Exam - Vagina: normal vaginal discharge and No vaginal bleeding Speculum Exam - Cervix: nontender Bimanual exam- vagina & uterus: bladder normal to palpation and No Cervical tenderness present OB/external & speculum: No vaginal bleeding Skin: General skin exam: no rashes or lesions noted Extrem: General: normal to inspection and no edema Psych: Mental Status: mental status grossly normal Affect: normal affect
[2020-05-19] MEDS: IBUPROFEN 600 MG TABLET PO (09:16)
[2020-05-19] MEDS: MULTIVIT/MIN/PREN/FOL AC/IRON TABLET 1 TAB PO (09:16)
[2020-05-19] MEDS: DOCUSATE SODIUM 100 MG CAPSULE PO (09:16)
[2020-05-19] MEDS: POLYSACCHARIDE IRON COMPLEX 150 MG CAPSULE PO (09:16)
[2020-05-19 10:00] VITALS: BP 135/81; PULSE 73; RESP 14; TEMP 36.6; O2SAT 99
--- NOTE | 2020-05-19 11:30 | PC.NURSE ---
Consult with pt., mother reports both infants are eagerly latching, nursing for 10 minutes with good draws and swallowing noted. Both infants tend to wear out quickly and begin to sleep after 10 minutes. Both infants eagerly nipple bottle. Feeding plan is for mother to put each infant to breast, one at a time, rotating each infant to opposite breast.. Mother will continue to bottle feed and pump until infants are observed by her [facility] counselor or returning here for LC visit. Discussed infants may want to increase their supplement until they are more effective with , suggested to increase as infants desire. Reviewed milk should transition in within a few days and EBM should be used as part of supplement. Mother is pumping using her Spectra pump from home without difficulties or discomfort. Mother is able to independently latch infants with appropriate positioning/alignment. She denies any nipple discomfort, is feeding as required and waking infants to feed if needed. Infants are currently meeting outcomes for weight, output, jaundice and feeding frequencies. Mother states she feels confident to continue effective at home. Reviewed transition to breast milk, signs of adequate intake, and engorgement/relief. Instructed to call ICP if intake/output less than required. Reviewed regular medications mother is taking. Information provided per Danya. Reviewed community resources on the [facility] website and in the Mom/Baby guide. Information on outpatient services provided. Mother is close to her [facility] office, advised to call and inform peer counselor of infants . Mother has no further questions at this time.
== END 2020-05-19 12:50 | disposition home or self-care (01) | DRG 807 ==
LOC: ANHLDR 05-17 03:13 → ANHOB2 05-17 09:37
PROVIDERS: Admitting Provider Obstetrics & Gynecology; Visit Provider Obstetrics & Gynecology
DX: O30.043 Twin pregnancy, dichorionic/diamniotic, third trimester (principal); Z37.2 Twins, both liveborn; Z3A.37 37 weeks gestation of pregnancy; O34.211 Maternal care for low transverse scar from previous cesarean delivery; O99.214 Obesity complicating childbirth; E66.9 Obesity, unspecified; O99.824 Streptococcus B carrier state complicating childbirth; O36.8330 Maternal care for abnormalities of the fetal heart rate or rhythm, third trimester, not applicable or unspecified
CPT/HCPCS: 36415; 85014; 85018; 85025; 86592; 86850; 86900; 86901; 88307; A9270; J0290; J2210; J2590; J2795; J3010; J7120

== ENCOUNTER 2021-10-04 13:08 | Observation (INO) | payer OTHER, SELFPAY ==
[2021-10-04 13:31] VITALS: BP 102/77; PULSE 81
[2021-10-04 13:46] VITALS: BP 122/70; PULSE 75
--- NOTE | 2021-10-04 15:57 | OBADM ---
This patient, Miguel Quinn, admitted to the OB room Labor/Delivery/Recovery 105 for observation. Patient/family oriented to hospital policies and general routines including ID bracelet, bed and alarms, visiting hours, pain management, procedures, bathroom and other care routines, personal items, smoking policy, room service/diet, and visiting hours. Patient/Family are encouraged to report perceived risks to care and to ask questions if they do not understand what they are told or what they should do.
--- NOTE | 2021-10-06 18:13 | PM.OBTRLD ---
OB - Triage/Final Diagnosis Visit Information Date of evaluation: 10/06/21 Reason for evaluation: threatened labor Comments/Additional reasons for admission: I have assessed the risk for this patient, Miguel Quinn, and determined that she would benefit from observation care.
== END 2021-10-04 16:00 | disposition home or self-care (01) ==
PROVIDERS: Admitting Provider Obstetrics & Gynecology; Visit Provider Obstetrics & Gynecology
DX: O47.1 False labor at or after 37 completed weeks of gestation (principal); Z3A.37 37 weeks gestation of pregnancy
CPT/HCPCS: 84112; G0378; G0379

== ENCOUNTER 2021-10-06 17:14 | Inpatient (IN) | payer OTHER, SELFPAY ==
[2021-10-06] VITALS (41 sets, daily range): BP systolic 96–151; BP diastolic 56–106; PULSE 58–149; RESP 14; TEMP 36.6; O2SAT 97–100; BMI 35.6
[2021-10-06] MEDS: AMPICILLIN 2 GM/NS 100 ML 2 GM/100 ML BAG IVPB (17:45)
[2021-10-06] MEDS: LACTATED RINGERS 1,000 ML 125 ML IV CONT (17:45)
[2021-10-06 17:51] LABS: Basophils Percent Auto 0.2 % (0.2-1.2); Eosinophils Absolute Auto 0.1 K/mm3 (0-0.3); Eosinophils Percent Auto 0.5 % (0-4.4); Hematocrit 35.9 % (37.0-47.0); Hemoglobin 11.4 g/dL (12.0-15.0); Immature Granulocyte Absolute 0.13 K/mm3 (0.00-0.031); Lymphocytes Absolute Auto 1.75 K/mm3 (0.9-3.2); Mean Corpuscular HGB Conc 31.8 g/dl (32-36); Mean Corpuscular Hemoglobin 24.9 pg (26-34); Mean Corpuscular Volume 78.4 fl (80-100); Mean Platelet Volume 10.9 fl (7.4-10.4); Monocytes Absolute Auto 0.7 K/mm3 (0.1-0.6); Neutrophils Absolute Auto 10.8 K/mm3 (1.3-6.7); Neutrophils Percent Auto 80.3 % (45.5-73.1); Platelet Count Result 243 k/mm3 (150-375); Red Blood Count 4.58 M/mm3 (4.2-5.4); White Blood Count 13.5 K/mm3 (4.5-10.0)
--- NOTE | 2021-10-06 17:51 | LDADM ---
This patient, Miguel Quinn, was admitted to Labor/Delivery/Recovery 105 on 10/06/21 at 17:14. Plans for labor, pain management and were discussed with patient. Patient/family oriented to hospital policies and general routines including ID bracelet, bed and alarms, visiting hours, pain management, procedures, bathroom and other care routines, personal items, smoking policy, room service/diet and guest tray routines, security routines, and visiting hours. Patient/Family are encouraged to report perceived risks to care and to ask questions if they do not understand what they are told or what they should do. See OBIX for further documentation.
--- NOTE | 2021-10-06 18:01 | WPDANESEPPF ---
Anes - Initial Pre Proc Eval Procedure: labor epidural Date/Time: 10/06/21 18:01 Surgeon: Russel Keating MD Pre Op Diagnosis: labor pain Pre Op Diagnosis: labor pain Patient Data Age: 26 Gender: F Height: 1.65 m Weight: 97 kg Last Vital Signs Pulse 65 10/06/21 18:00 BP 138/77 10/06/21 18:00 O2 Del Method Room Air 10/06/21 17:50 Allergies Allergy/AdvReac Type Severity Reaction Status Date / Time No Known Allergies Allergy Verified 05/01/20 10:14 Home Medications Medication Instructions Recorded Confirmed Type ferrous sulfate 325 mg (65 mg 325 mg PO TID 05/02/20 05/16/20 History iron) tablet vit no.95-ferrous 1 tablet PO DAILY 05/02/20 05/16/20 History fumarate 28 mg-folic acid 800 mcg tablet () progesterone micronized 200 mg 200 mg PO HS 05/02/20 05/16/20 History capsule Laboratory Tests 10/06/21 10/06/21 17:45 17:45 WBC 13.5 K/mm3 H K/mm3 (4.5-10.0) RBC 4.58 M/mm3 M/mm3 (4.2-5.4) Hgb 11.4 g/dL L g/dL (12.0-15.0) Hct 35.9 % L % (37.0-47.0) MCV 78.4 fl L fl (80-100) MCH 24.9 pg L pg (26-34) MCHC 31.8 g/dl L g/dl (32-36) RDW 16.0 % H % (11.5-14.5) Plt Count 243 k/mm3 k/mm3 (150-375) MPV 10.9 fl H fl (7.4-10.4) Immature Gran % (Auto) 1.0 % H % (0-0.5) Neut % (Auto) 80.3 % H % (45.5-73.1) Lymph % (Auto) 13.0 % L % (18.3-44.2) [place] % (Auto) 5.0 % % (2.6-8.5) Eos % (Auto) 0.5 % % (0-4.4) Baso % (Auto) 0.2 % % (0.2-1.2) Lymph # (Auto) 1.75 K/mm3 K/mm3 (0.9-3.2) [place] # (Auto) 0.7 K/mm3 H K/mm3 (0.1-0.6) Eos # (Auto) 0.1 K/mm3 K/mm3 (0-0.3) Baso # (Auto) 0.0 K/mm3 K/mm3 (0.0-0.1) Abs Immat Gran (auto) 0.13 K/mm3 H K/mm3 (0.00-0.031) Absolute Neuts (auto) 10.8 K/mm3 H K/mm3 (1.3-6.7) Absolute Nucleated RBC 0.0 K/mm3 K/mm3 (0.0-0.012) Nucleated RBC % 0.0 % % (0.0-0.2) RPR Pending Patient hx anesthesia problems: none Family hx anesthesia problems: none Results Review: All pre-operative results and documents have been reviewed as part of the pre-operative evaluation. [facility] Past Medical History Medical History Obesity and not yet delivered Surgical History Surgical History Previous section Family History Family History Other Adopted Social History Social History Smoking status: Never smoker Substance use: never Gender identity (if verbalized by the patient): Female Spiritual care concerns: No Anes - Eval Final PreProcedure Day of Procedure 10/06/21 18:01 Patient weight: normal Heart: regular rate and rhythm Lungs: clear to auscultation Airway: Mallampati scale class II Neurological: alert and oriented Last oral intake: 2 hours ASA classification: II Emergent: no Anesthetic plan: proceed Anesthesia type and monitoring: regional epidural and standard monitoring Results Review: All pre-operative results and documents have been reviewed as part of the pre-operative evaluation. Informed Consent: The patient's anesthetic plan and its attendant risks and benefits were discussed with the patient/family/POA. Questions were solicited and answers provided to the satisfaction of the patient/family/POA.
--- NOTE | 2021-10-06 18:14 | PM.IMHP ---
H&P: HPI History of Present Illness Date/Time: 10/06/21 18:14 Chief Complaint: labor at term Narrative: this is a 26-year-old 4 para 3 whose last menstrual period was 01/18/2021, EDC is 10/25/2021, confirmed by 7 week ultrasound who presents at 37 and half weeks gestation in active labor. She is positive for group B strep in her urine. She has had a followed by 2 successful . was reviewed in full she is COVID vaccinated [facility] Past Medical History Medical History Obesity and not yet delivered Surgical History Surgical History Previous section Family History Family History Other Adopted Social History Social History Smoking status: Never smoker Substance use: never Gender identity (if verbalized by the patient): Female Spiritual care concerns: No Meds Home Medications and Allergies Home Medications Medication Instructions Recorded Confirmed Type ferrous sulfate 325 mg (65 mg 325 mg PO TID 05/02/20 10/06/21 History iron) tablet vit no.95-ferrous 1 tablet PO DAILY 05/02/20 10/06/21 History fumarate 28 mg-folic acid 800 mcg tablet () Allergies Allergy/AdvReac Type Severity Reaction Status Date / Time No Known Allergies Allergy Verified 10/06/21 18:05 Vital Signs Vital Signs - 24 hr 10/06/21 17:39 10/06/21 17:45 10/06/21 18:00 Pulse Rate 71 74 65 Blood Pressure 116/72 127/61 138/77 Pulse Oximetry Oxygen Delivery 10/06/21 18:11 10/06/21 18:12 10/06/21 18:13 Pulse Rate 69 72 Blood Pressure 120/85 136/76 Pulse Oximetry 100 Oxygen Delivery 10/06/21 17:50 Pulse Rate Blood Pressure Pulse Oximetry Oxygen Delivery Room Air Exam Const: General: cooperative and healthy appearing Nutritional Appearance: average body habitus Orientation/consciousness: oriented to person, oriented to place and oriented to time Resp: Effort & Inspection: normal respiratory effort Cardio: Rate: regular rate Rhythm: regular rhythm GI: Inspection: normal to inspection : External Female Exam: normal external appearance Speculum Exam - Vagina: normal appearance of the vagina Speculum Exam - Cervix: normal appearance of the cervix ( 6cm with regular contractions. FHTs reassuring) H&P: Results Labs Labs: Short CBC 10/06/21 Range/Units 17:45 WBC 13.5 H (4.5-10.0) K/mm3 Hgb 11.4 L (12.0-15.0) g/dL Hct 35.9 L (37.0-47.0) % Plt Count 243 (150-375) k/mm3 Assessment and Plan Assessment and plan (1) Term : Code(s): Z34.90 - Encounter for supervision of normal , unspecified, unspecified trimester Status: Acute (2) Previous section: Code(s): Z98.891 - History of uterine scar from previous surgery Status: Acute (3) Group beta Strep positive: Code(s): B95.1 - Streptococcus, group B, as the cause of diseases classified elsewhere Status: Acute Plan be back is expected. Group B strep prophylaxis. She has an epidural candidate
--- NOTE | 2021-10-06 18:36 | WPDANESEPN ---
Anes - Epidural Procedure Note Date/Time: 10/06/21 18:36 Consent: I have discussed with the patient/family/POA, the placement of an epidural catheter and the use of epidural narcotic/local anesthetic for labor analgesia and/or postoperative pain management, including associated potential risks, benefits, complications and side effects. I have discussed alternative methods of labor analgesia and/or postoperative pain management. The patient/family/POA, understand(s) and wish(es) to proceed with epidural narcotic/local anesthetic for labor analgesia and/or postoperative pain management. Time-Out: A pre-procedural Time-Out was completed immediately before starting the procedure and confirmed: Patient Identification, Site, Procedure, Patient Position and the Availability of Requisite Equipment. Clinical Indications: labor pain Epidural Insertion Note Patient position: sitting Skin prep: chlorhexidine and sterile drape Needle: 17g Tuohy Catheter: 20g Unstyleted Technique: Loss of resistance. Level of insertion: L3/4 Catheter skin miley (cm): 6 Length in epidural space (cm): 11 Skin anesthesia: lidocaine 1% Test dose: 1.5% Lidocaine with 1:[id number] Epi, negative for subarachnoid Inj and negative for intravascular Inj (positive test dose at 1818. Catheter repositioned and 3ml test given. negative test dose on second injection) Time of test dose: 18:18 Observations: tolerated well Complications: none
[2021-10-06] MEDS: LIDOCAINE HCL 1% PF 30 ML VIAL (19:13)
--- NOTE | 2021-10-06 19:22 | PM.OBPRVD ---
OB - Delivery Note Procedure Delivery date: 10/06/21 Events: Positive Group B Strep (GBS) Induction method: None Delivery monitor: External FHT Route of delivery: Episiotomy description: None Laceration Description: Perineal - 1st Degree Delivery repair: vicryl Specimen: No Quantitative Blood Loss (ml): 59 Anesthesia type: Epidural Disposition: Floor Complications: amp x 1 for gbs Baby Date of : 10/06/21 Time of : 19:05 Weeks of gestation at delivery: 37 Infant gender: Male Weight (pounds): 9 Weight (ounces): 0 presentation: vertex position: Right Occiput Anterior Placenta delivery description: Spontaneous Cord Vessel Description: 3 Vessels, Nuchal Cord and Loose score one minute: 8 score five minutes: 9
[2021-10-06] MEDS: OXYTOCIN 30 UNITS/NS 500 ML 30 UNITS/500 ML BAG 999 UNITS IV CONT (19:31)
[2021-10-06] MEDS: OXYTOCIN 30 UNITS/NS 500 ML 30 UNITS/500 ML BAG 125 UNITS IV CONT (19:53)
[2021-10-06] MEDS: ACETAMINOPHEN 325 MG TABLET 650 MG PO (20:48)
[2021-10-06] MEDS: BENZOCAINE 20% AER SPR (*SP) 56 GM CAN 1 SPRAY TOPICAL (20:49)
[2021-10-06] MEDS: WITCH HAZEL 40 PADS 1 PAD TOPICAL (20:49)
[2021-10-06] MEDS: IBUPROFEN 600 MG TABLET PO (23:59)
[2021-10-07 04:45] VITALS: BP 130/82; PULSE 74; RESP 20; TEMP 36.8; O2SAT 100
[2021-10-07 06:30] LABS: Hematocrit 29.5 % (37.0-47.0); Hemoglobin 9.4 g/dL (12.0-15.0)
--- NOTE | 2021-10-07 06:46 | PM.OBPNVD ---
OB - PN: Subj Subjective Date/time seen: 10/07/21 06:46 Patient comments: no complaints and pain well controlled baby status: doing well and nursing well OB - PN: Obj Data Labs CBC & Chem 7: 10/07/21 05:46 Labs: Laboratory Results - last 24 hr 10/06/21 10/06/21 10/07/21 17:45 17:45 05:46 WBC 13.5 H RBC 4.58 Hgb 11.4 L 9.4 L Hct 35.9 L 29.5 L MCV 78.4 L MCH 24.9 L MCHC 31.8 L RDW 16.0 H Plt Count 243 MPV 10.9 H Immature Gran % (Auto) 1.0 H Neut % (Auto) 80.3 H Lymph % (Auto) 13.0 L [place] % (Auto) 5.0 Eos % (Auto) 0.5 Baso % (Auto) 0.2 Lymph # (Auto) 1.75 [place] # (Auto) 0.7 H Eos # (Auto) 0.1 Baso # (Auto) 0.0 Abs Immat Gran (auto) 0.13 H Absolute Neuts (auto) 10.8 H Absolute Nucleated RBC 0.0 Nucleated RBC % 0.0 Blood Type B Positive Antibody Screen Negative OB - PN A/P Plan day: 1 Plan: routine care Time Spent With Patient Time: Total time spent is greater than 50% in coordination of care (as documented) at patient's floor/unit and/or counseling patient: Time with patient: less than 15 minutes
--- NOTE | 2021-10-07 07:15 | PC.NURSE ---
PT introductions made and plan of care discussed per post ,pain management, breast feeding, supplementing, daily care activities. PT and significant other both recipients of such instructions and no barriers to learning identified at this time. PT to received instructions via one to one discussion, mom baby care guide and demonstrations this shift. PT verbalized understanding of such care.
[2021-10-07 07:19] LABS: Rapid Plasma Reagin Non-Reactive (NonReactive)
[2021-10-07 07:45] VITALS: BP 126/75; PULSE 67; RESP 16; TEMP 36.7; O2SAT 97
[2021-10-07 10:28] VITALS: PULSE 71; RESP 16; O2SAT 100
[2021-10-07] MEDS: ACETAMINOPHEN 325 MG TABLET 650 MG PO ×3 (10:28→23:38)
[2021-10-07] MEDS: IBUPROFEN 600 MG TABLET PO ×3 (10:34→23:40)
[2021-10-07] MEDS: POLYSACCHARIDE IRON COMPLEX 150 MG CAPSULE PO ×2 (10:35→17:39)
[2021-10-07] MEDS: MULTIVIT/MIN/PREN/FOL AC/IRON TABLET 1 TAB PO (10:35)
[2021-10-07] MEDS: DOCUSATE SODIUM 100 MG CAPSULE PO ×2 (10:35→17:39)
[2021-10-07 12:20] VITALS: BP 128/70; PULSE 71; RESP 16; TEMP 36.2; O2SAT 100
--- NOTE | 2021-10-07 14:17 | PC.NURSE ---
[id number] Introductions were made, then consulted with patient to assess needs related to . Mother led the conversation with her?plans to feed?her infant and the?experience so far. Mother shared her family history of having five babies at home. Mother has a history of pumping and feeding her second born at 28 EGA, and her twins born at 37 EGA. Mother states she is able to latch her well to the left breast but may call for latch assistance on the right breast as she believes her infant is not latching well on that side. Resources provided for inpatient and outpatient services using a resource guide and mom/baby guide. Mother voiced understanding of information and will call if there is a request for assistance. Reported to primary RN.
[2021-10-07] MEDS: TETANUS,DIPHTHERIA,AC PERTUSSIS ADULT (0.5 ML) BOOSTRIX IM (17:36)
[2021-10-07 20:10] VITALS: BP 125/72; PULSE 76; RESP 16; TEMP 36.9; O2SAT 100; O2SAT 99
--- NOTE | 2021-10-08 05:12 | PM.DS ---
DS: Admitting Diagnosis Discharge Date 10/08/2021 Admitting Diagnosis term with group B strep and previous section DS: Discharge Diagnosis Discharge Diagnosis (1) Group beta Strep positive: Code(s): B95.1 - Streptococcus, group B, as the cause of diseases classified elsewhere Status: Acute (2) Previous section: Code(s): Z98.891 - History of uterine scar from previous surgery Status: Acute (3) Term : Code(s): Z34.90 - Encounter for supervision of normal , unspecified, unspecified trimester Status: Acute DS: Summary Hospital Course Reason for hospitalization: patient was admitted term with active labor and positive group B strep she had had 2 previous vaginal deliveries following Hospital Course: patient was admitted at term in active labor she is positive for group B strep. She did 2 previous successful vaginal after is. Her 48hour course unremarkable. She remained afebrile. She was up, voiding without difficulty, ambulating, breast-feeding him in general without complaints. Time Spent with Patient Time attestation: Total time spent providing and/or coordinating discharge services: DS: Data Data Completed and Pending Labs on day of discharge: Labs from last 24 hours 10/07/21 10/06/21 05:46 17:45 Hgb 9.4 L Hct 29.5 L RPR Non-reactive Discharge Plan Discharge Attending physician on discharge: Russel Kinsey Discharging Clinician: Russel Kinsey Patient Disposition: Home, Self-Care Activity: may shower, no straining and pelvic rest Diet: heart healthy Wound Care Instructions: follow printed instructions Patient Instructions: Antibiotic Form Stand Alone Forms: General Discharge Information Follow-up/Referrals: Russel Kinsey MD [Physician] - Discharge Medications: Continued ferrous sulfate 325 mg (65 mg iron) Tablet 325 mg PO TID PNV [id number]-ferrous fumarate-FA [] 28 mg iron- 800 mcg Tablet 1 tablet PO DAILY Date of admission: 10/06/21 17:14 Primary Care Provider: PHYSICIAN,[employer]AL[employer] TECHNICIAN Admitting Provider: Russel Kinsey Attending physician on admission: Russel Kinsey Condition: Stable
--- NOTE | 2021-10-08 08:00 | PC.NURSE ---
PT introductions made and plan of care discussed per post ,pain management, breast feeding, supplementing, daily care activities and pending discharge to home. PT and significant other both recipients of such instructions and no barriers to learning identified at this time. PT to received instructions via one to one discussion, mom baby care guide and demonstrations this shift. PT verbalized understanding of such care.
[2021-10-08 08:05] VITALS: BP 130/74; PULSE 64; RESP 16; TEMP 36.7; O2SAT 100
[2021-10-08] MEDS: ACETAMINOPHEN 325 MG TABLET 650 MG PO (11:08)
[2021-10-08 11:09] VITALS: PULSE 64; RESP 16; O2SAT 100
[2021-10-08] MEDS: POLYSACCHARIDE IRON COMPLEX 150 MG CAPSULE PO (11:09)
[2021-10-08] MEDS: DOCUSATE SODIUM 100 MG CAPSULE PO (11:09)
[2021-10-08] MEDS: IBUPROFEN 600 MG TABLET PO (11:09)
[2021-10-08] MEDS: MULTIVIT/MIN/PREN/FOL AC/IRON TABLET 1 TAB PO (11:09)
--- NOTE | 2021-10-08 15:45 | PC.NURSE ---
PT received discharge instructions per protocol and verbalized understanding of such care.
--- NOTE | 2021-10-08 16:18 | PC.NURSE ---
Pt discharged to home ambulatory accompanied by spouse and and taken to waiting car. Follow up appts confirmed
[2021-10-09 08:18] VITALS: BP 132/75; PULSE 68; RESP 16; TEMP 37.2; O2SAT 99
== END 2021-10-08 16:18 | disposition home or self-care (01) | DRG 807 ==
LOC: ANHLDR 18:03 → ANHOB2 20:02 → ANHLDR 20:03 → ANHOB2 23:04
PROVIDERS: Admitting Provider Obstetrics & Gynecology; Visit Provider Obstetrics & Gynecology
DX: O34.219 Maternal care for unspecified type scar from previous cesarean delivery (principal); Z37.0 Single live birth; O99.824 Streptococcus B carrier state complicating childbirth; Z3A.37 37 weeks gestation of pregnancy; O62.3 Precipitate labor; O76 Abnormality in fetal heart rate and rhythm complicating labor and delivery; O70.0 First degree perineal laceration during delivery; O69.81X0 Labor and delivery complicated by cord around neck, without compression, not applicable or unspecified
CPT/HCPCS: 36415; 85014; 85018; 85025; 86592; 86850; 86900; 86901; 90715; A9270; J0290; J2590; J7120

== ENCOUNTER 2023-07-26 16:28 | Outpatient (CLI) | payer OTHER, SELFPAY ==
--- NOTE | ~2023-07-26 | US_ITS ---
Thyroid ultrasound. Clinical History: Nontoxic goiter Findings: Real-time sonography of the thyroid gland was performed. The right lobe measures 4.4 x 1.9 x 1.5 cm. The left lobe measures 3.7 x 1.5 x 1.7 cm. The isthmus is 2 mm in AP diameter. Thyroid parenchyma is relatively homogeneous, without discrete nodule. Impression: Unremarkable exam. Reviewed, dictated and finalized at location . Impression: Unremarkable exam.
== END 2023-07-26 16:29 | disposition home or self-care (01) ==
LOC: ANHIMG 16:30
PROVIDERS: PCP Nurse Practitioner Family; Visit Provider Nurse Practitioner Family
DX: E04.9 Nontoxic goiter, unspecified (principal); L65.9 Nonscarring hair loss, unspecified
CPT/HCPCS: 76536